=== PATIENT | female | born 1975 | race Caucasian/White ===

== ENCOUNTER → 2016-11-26 | Outpatient (CLI) | payer OTHER ==
--- NOTE | 2016-11-26 14:09 | REPMRS ---
Patient History The patient states she has not had a clinical breast exam in over a year. Family history of breast cancer in mother at age 70 and unknown cancer in maternal grandmother at age 50 or over. Taking hormonal contraceptives for 25 years. Digital Mammo Screening Bilat: November 26, 2016 - Exam #: [id number] Bilateral CC and MLO view(s) were taken. Technologist: Caro Walters, Technologist Prior study comparison: November 23, 2015, bilateral digital mammo screening bilat performed at [facility]. November 09, 2014, digital bilateral screening mammo, performed at [facility]. October 30, 2013, bilateral digital mammo screening bilat performed at [facility]. FINDINGS: The breast tissue is heterogeneously dense. This may lower the sensitivity of mammography. There is a moderate amount of heterogeneously dense fibroglandular tissue which is fairly symmetric. There is no interval development of dominant mass, architectural distortion, or clustered microcalcification typical of malignancy. There has been no change in the appearance of the mammogram from the prior studies. ASSESSMENT: BI-RADS/ACR category 1 mammogram. Negative. Recommendation Routine screening mammogram of both breasts in 1 year (for women over age 40). This mammogram was interpreted with the aid of an FDA-approved computer-aided dectection system. Electronically Signed By: Pio Head MD 11/26/16 [id number]
== END ==
LOC: M RAD 11:17
PROVIDERS: ATTEND Physician Assistant
DX: Z12.31 Encounter for screening mammogram for malignant neoplasm of breast (principal)

== ENCOUNTER → 2017-12-20 | Outpatient (CLI) | payer OTHER | LOC: M RAD 12:26 | DX: Z12.31 Encounter for screening mammogram for malignant neoplasm of breast (principal); N60.31 Fibrosclerosis of right breast; N60.32 Fibrosclerosis of left breast | CPT/HCPCS: 77067 ==

== ENCOUNTER → 2018-12-22 | Outpatient (CLI) | payer OTHER ==
--- NOTE | 2018-12-22 10:26 | REPMRS ---
Patient History The patient states she has not had a clinical breast exam in over a year. Family history of breast cancer at age 70 in mother, unknown cancer at age 50 or over in maternal grandmother. Taking hormonal contraceptives for 25 years. [facility] lifetime risk for breast cancer is 17.6%. Digital Mammo Screening Bilat: December 22, 2018 - Exam #: [id number] Bilateral CC and MLO view(s) were taken. Technologist: Belinda Rajan, Technologist Prior study comparison: December 20, 2017, bilateral digital mammo screening bilat performed at [facility]. November 26, 2016, bilateral digital mammo screening bilat performed at [facility]. FINDINGS: The breast tissue is heterogeneously dense. This may lower the sensitivity of mammography. There has been no change in the appearance of the mammogram from the prior studies. There is a moderate amount of residual fibroglandular tissue which is fairly symmetric. There is no interval development of dominant mass, areas of architectural distortion, or clustered microcalcification typical of malignancy. Assessment: BI-RADS/ACR category 1 mammogram. Negative Mammogram. Recommendation Routine screening mammogram in 1 year (for women over age 40). This mammogram was interpreted with the aid of an FDA-approved computer-aided dectection system. Electronically Signed By: Sandeep Suarez MD 12/22/18 [id number]
== END ==
LOC: M RAD 09:10
PROVIDERS: ATTEND Nurse Practitioner Primary Care
DX: Z12.31 Encounter for screening mammogram for malignant neoplasm of breast (principal)

== ENCOUNTER → 2021-12-28 | Outpatient (CLI) | payer OTHER | LOC: M WHC 07:49 | PROVIDERS: ATTEND Nurse Practitioner Primary Care | DX: Z12.31 Encounter for screening mammogram for malignant neoplasm of breast (principal) ==

== ENCOUNTER 2022-11-15 11:10 | Day surgery (SDC) | payer OTHER ==
[~2022-11-15] VITALS: Ht 157.5 cm; Wt 66.2 kg
[~2022-11-15 11:10] MED LIST: ACETAMINOPHEN *IV* 1,000 MG in IV 1 EA IV ONE; AMLO2.5T3 PO; CETI-24 PO; CHLO125TA PO; D 50CAP2 PO; FLUT50SP17; LISI40TA4 PO; LUTERA-28 PO; MULT-90 PO; OMEP-173 PO; POTA1TAB23 PO
[2022-11-15 11:39] LABS: HEMATOCRIT 40.2 % (36.0-47.0); HEMOGLOBIN 12.9 g/dl (12.0-15.5); MEAN CORPUSCULAR HEMOGLOBIN 28.4 pg (27.0-33.0); MEAN CORPUSCULAR HGB CONC 32.1 g/dl (32.0-36.5); MEAN CORPUSCULAR VOLUME 88.4 fl (80.0-96.0); PLATELET COUNT, AUTOMATED 298 10^3/uL (150-450); RED BLOOD COUNT 4.55 10^6/uL (4.00-5.40); WHITE BLOOD COUNT 6.5 10^3/uL (4.0-10.0)
[2022-11-15] MEDS ORDERED: MIDAZOLAM INJ 2MG/2ML VIAL As Ordered ONE (12:33)
[2022-11-15] MEDS ORDERED: fentaNYL 100 MCG/2 ML INJECTION As Ordered ONE (12:33)
[2022-11-15] MEDS ORDERED: LIDOCAINE 2% 100MG/5ML SDV (FOR ANES.) As Ordered ONE (12:34)
[2022-11-15] MEDS ORDERED: ONDANSETRON 4MG 2ML VIAL As Ordered ONE (12:34)
[2022-11-15] MEDS ORDERED: KETOROLAC 60MG 2ML VIAL As Ordered ONE (12:34)
[2022-11-15] MEDS ORDERED: propofoL 200 MG/20 ML VIAL As Ordered ONE (12:35)
[2022-11-15] MEDS ORDERED: LIDOCAINE 1% SDV 30ML VIAL As Ordered ONE (12:37)
[2022-11-15] MEDS ORDERED: ACETAMINOPHEN 1000MG 100ML IV BAG As Ordered ONE (12:40)
[2022-11-15] MEDS ORDERED: fentaNYL 100 MCG/2 ML INJECTION IV PRN (14:10)
[2022-11-15] MEDS ORDERED: ONDANSETRON 4MG 2ML VIAL IV PRN (14:10)
[2022-11-15] MEDS ORDERED: LR 1,000 ML IV SCH (14:10)
[2022-11-15] MEDS ORDERED: HYDROMORPHONE HCL 0.5 MG/ 0.5 ML SYRINGE IV PRN (14:10)
[2022-11-15] MEDS ORDERED: oxyCODONE 5MG TAB PO PRN (14:10)
[2022-11-15 15:30] VITALS: BP 139/76; TEMP 98.2; O2SAT 100
== END 2022-11-15 15:32 | disposition home or self-care (01) ==
LOC: M SDC 11:10
PROVIDERS: ATTEND Obstetrics & Gynecology
DX: N84.0 Polyp of corpus uteri (principal); N93.9 Abnormal uterine and vaginal bleeding, unspecified; I10 Essential (primary) hypertension; K21.9 Gastro-esophageal reflux disease without esophagitis; R51.9 Headache, unspecified; Z79.899 Other long term (current) drug therapy
CPT/HCPCS: 36415; 58558; 81025; 85027; 86850; 86900; 86901; 88305; J0131; J1100; J1885; J2250; J2405; J3010

== ENCOUNTER → 2023-01-22 | Outpatient (CLI) | payer OTHER ==
[~2023-01-22] MED LIST changes: -ACETAMINOPHEN *IV* 1,000 MG in IV 1 EA IV ONE
== END ==
LOC: M WHC 13:04
PROVIDERS: ATTEND Nurse Practitioner Primary Care
DX: Z12.31 Encounter for screening mammogram for malignant neoplasm of breast (principal); R92.323 Mammographic fibroglandular density, bilateral breasts; R92.8 Other abnormal and inconclusive findings on diagnostic imaging of breast

== ENCOUNTER → 2023-07-02 | Outpatient (CLI) | payer OTHER ==
[~2023-07-02] MED LIST changes: -FLUT50SP17; +FLUTISP; +PROHANCE 279.3MG/ML 15ML VIAL ONE
== END ==
LOC: M PLAIMG 08:44
PROVIDERS: ATTEND Nurse Practitioner Primary Care
DX: N63.20 Unspecified lump in the left breast, unspecified quadrant (principal); Z15.01 Genetic susceptibility to malignant neoplasm of breast; Z80.3 Family history of malignant neoplasm of breast
CPT/HCPCS: A9576; C8908

== ENCOUNTER → 2023-11-19 | Outpatient (CLI) | payer OTHER ==
[~2023-11-19] MED LIST changes: -PROHANCE 279.3MG/ML 15ML VIAL ONE
== END ==
LOC: M WHC 07:30
PROVIDERS: ATTEND Nurse Practitioner Primary Care
DX: R92.8 Other abnormal and inconclusive findings on diagnostic imaging of breast (principal)
CPT/HCPCS: 76642; 77066; G0279

== ENCOUNTER → 2024-11-20 | Outpatient (CLI) | payer OTHER ==
[~2024-11-20] MED LIST changes: +LISI40TA10 PO; -LISI40TA4 PO
== END ==
LOC: M WHC 10:41
PROVIDERS: ATTEND Nurse Practitioner Primary Care
DX: Z12.31 Encounter for screening mammogram for malignant neoplasm of breast (principal)

== ENCOUNTER → 2024-12-17 | Outpatient (CLI) | payer OTHER | LOC: M WHC 07:45 | PROVIDERS: ATTEND Nurse Practitioner Primary Care | DX: Z12.31 Encounter for screening mammogram for malignant neoplasm of breast (principal); R92.322 Mammographic fibroglandular density, left breast | CPT/HCPCS: 76642; 77065; G0279 ==